=== PATIENT | male | born 1935 | race Caucasian/White ===

== ENCOUNTER → 2017-10-21 | Outpatient (CLI) | payer OTHER, BC | LOC: CIMAGING 08:45 | PROVIDERS: ATTEND Internal Medicine | DX: M25.551 Pain in right hip (principal); M51.36 Other intervertebral disc degeneration, lumbar region | CPT/HCPCS: 73502-PO ==

== ENCOUNTER → 2018-07-20 | Outpatient (CLI) | payer OTHER, BC | LOC: CIMAGING 10:40 | PROVIDERS: ATTEND Internal Medicine | DX: H81.10 Benign paroxysmal vertigo, unspecified ear (principal); S00.93XA Contusion of unspecified part of head, initial encounter; W11.XXXA Fall on and from ladder, initial encounter; I25.10 Atherosclerotic heart disease of native coronary artery without angina pectoris | CPT/HCPCS: 70450-PO ==

== ENCOUNTER → 2018-07-27 | Outpatient (CLI) | payer OTHER, BC | LOC: CIMAGING 10:30 | PROVIDERS: ATTEND Internal Medicine | DX: M54.2 Cervicalgia (principal); M47.896 Other spondylosis, lumbar region; M47.892 Other spondylosis, cervical region; M43.12 Spondylolisthesis, cervical region | CPT/HCPCS: 72050-PO; 72100-PO ==